=== PATIENT | male | born 1960 | race Caucasian/White ===

== ENCOUNTER 2019-04-21 03:50 | Emergency (ER) | payer MEDICARE ==
[~2019-04-21] VITALS: Ht 182.9 cm; Wt 145.4 kg
[~2019-04-21 03:50] MED LIST: ATIVAN1 M1 PO; AVELOX400 MG OR; BACTRIM DS1 TAB PO; FLAGYL500 MG OR; LEVAQUIN500 MG PO; LORTAB 5 OR; NORCO1 TA1 PO; TYLENOL # 31 TA1 PO
[2019-04-21 04:56] LABS: HEMATOCRIT 41.2 % (39.0-50.0); HEMOGLOBIN 14.2 g/dl (14.0-18.0); IMMATURE GRANULOCYTES 0.7 % (0.0-5.0); MEAN CELL VOLUME 94.1 fL CALC (80.0-100.0); MEAN CORPUSCULAR HGB 32.4 pG CALC (26.0-32.0); MEAN CORPUSCULAR HGB CONC 34.5 g/L CALC (32.0-36.0); NEUT# 2.45 thou/uL (1.82-7.42); RED BLOOD COUNT 4.38 mill/uL (4.70-6.10); RED CELL DISTRI WIDTH 12.2 % (11.5-15.5)
[2019-04-21 05:16] LABS: ALBUMIN 4.2 g/dL (3.2-5.0); ALKALINE PHOSPHATASE 72 u/l (38-126); ANION GAP 14 (6-22 (CALC)); BUN 16 mg/dL (9-20); BUN/CREATININE RATIO 17 (12-20 (CALC)); CARBON DIOXIDE 26 mmol/l (22-30); CHLORIDE 105 mmol/l (95-108); CREATININE 0.9 mg/dL (0.7-1.3); ETHYL ALCOHOL 0 mg/dl (0-30); GFR > 60 ML/MIN (>=60 (CALC)); GFR FOR AFR.AMER. > 60 ML/MIN (>=60 (CALC)); POTASSIUM 3.7 mmol/l (3.5-5.1); SGOT/AST 25 u/l (17-59); SODIUM 142 mmol/l (137-146)
[2019-04-21 05:17] LABS: BILIRUBIN, TOTAL 0.5 mg/dL (0.0-1.4)
[2019-04-21 05:25] LABS: ACT PARTIAL THROMBO TIME 24.7 SECONDS (20.0-32.5); D-DIMER 1.53 mg/L (0.19-0.60); PROTHROMBIN TIME 10.4 SECONDS (9.0-12.5)
[2019-04-21 05:28] LABS: MYOGLOBIN 58 ng/mL (0 - 121)
[2019-04-21 05:44] LABS: URINE BILIRUBIN - DIPSTICK NEGATIVE (NEGATIVE); URINE BLOOD DIPSTICK NEGATIVE (NEGATIVE); URINE COLOR YELLOW; URINE GLUCOSE - DIPSTICK 100 mg/dL (NEGATIVE); URINE KETONE NEGATIVE (NEGATIVE); URINE LEUK ESTERASE NEGATIVE (NEGATIVE); URINE NITRITE - DIPSTICK NEGATIVE (Negative); URINE PH 5.5 (4.5-8.0); URINE PROTEIN - DIPSTICK NEGATIVE (NEG-TRACE); URINE SPECIFIC GRAVITY 1.025; URINE UROBILINOGEN - DIPSTICK 0.2 E.U./dL (0.2)
[2019-04-21 05:48] LABS: BARBITURATES NEGATIVE (NEGATIVE); COCAINE NEGATIVE (NEGATIVE); METHADONE NEGATIVE (NEGATIVE); OXCYCODONE NEGATIVE (NEGATIVE); TETRAHYDROCANNABIONOL POSITIVE (NEGATIVE); TRICYLIC ANTIDEPRESSANTS NEGATIVE (NEGATIVE)
[2019-04-21] MEDS ORDERED: ALPRAZOLAM1 MG PO (07:43)
[2019-04-21] MEDS ORDERED: ENALAPRIL10 MG PO (07:44)
[2019-04-21] MEDS ORDERED: MEDICAL MARIJUANA (07:46)
[2019-04-21 08:30] VITALS: BP 126/65
== END 2019-04-21 08:30 | disposition home or self-care (01) ==
LOC: ED 03:50
PROVIDERS: Family Medicine
DX: R00.2 Palpitations (principal); F41.0 Panic disorder [episodic paroxysmal anxiety]; R91.1 Solitary pulmonary nodule; I10 Essential (primary) hypertension
CPT/HCPCS: Q9967

== ENCOUNTER 2020-10-28 20:13 | Emergency (ER) | payer MEDICARE ==
[~2020-10-28] VITALS: Ht 182.9 cm; Wt 150.0 kg
[~2020-10-28 20:13] MED LIST changes: +ALPRAZOLAM1 MG PO; +ENALAPRIL10 MG PO; +MEDICAL MARIJUANA
[2020-10-28] MEDS ORDERED: POLYTRIM OS (20:55)
[2020-10-28 21:30] VITALS: BP 175/82
[2020-10-28] MEDS ORDERED: METOPROL TAR25 MG PO (21:42)
== END 2020-10-28 21:34 | disposition home or self-care (01) ==
LOC: ED 20:13
DX: H10.9 Unspecified conjunctivitis (principal); I10 Essential (primary) hypertension; F41.9 Anxiety disorder, unspecified